=== PATIENT | male | born 1995 | race Caucasian/White ===

== ENCOUNTER 2021-11-08 16:18 | Emergency (ER) | payer OTHER ==
--- NOTE | 2021-11-08 17:53 | EDPHYS ---
Physician Documentation [facility] Name: Gene Merritt Age: 26 yrs Sex: Male : 1995 Arrival Date: 11/08/2021 Time: 16:19 Bed 10 Private MD: ED Physician Christiano Fairchild HPI: 11/08 17:47 This 26 yrs old Male presents to ER via Ambulatory with complaints of Nose Bleed. cp 17:47 The patient presents with a nose bleed, occurred from an unknown cause, that is cp moderate amount causative factors include: took Benadryl 2 days ago and the bleeding resolved prior to arrival. Onset: The symptoms/episode began/occurred just prior to arrival. Modifying factors: The symptoms are alleviated by pressure. Associated signs and symptoms: The patient has no apparent associated signs or symptoms. Severity of symptoms: in the emergency department the symptoms have resolved and did so just prior to arrival. Historical: - Allergies: 16:23 unknown antibiotic; ll1 - PMHx: 16:23 Hypertensive disorder; Sleep apnea; ll1 - PSHx: 16:23 None; ll1 - Immunization history:: Client reports receiving the 2nd dose of the Covid vaccine. - Social history:: Smoking status: Patient denies any tobacco usage or history of. ROS: 17:49 Constitutional: Negative for body aches, chills, fever, poor PO intake. cp 17:49 ENT: Positive for history of nose bleed, Negative for injury or acute deformity, drainage from ear(s), ear pain, sore throat, difficulty swallowing, difficulty handling secretions. 17:49 Respiratory: Negative for cough, shortness of breath, wheezing. 17:49 Abdomen/GI: Negative for abdominal pain, nausea, vomiting, and diarrhea. 17:49 Neuro: Negative for altered mental status, dizziness, headache, weakness. 17:49 All other systems are negative. Exam: 17:50 Head/Face: Normocephalic, atraumatic. cp 17:50 Constitutional: The patient appears in no acute distress, alert, awake, comfortable, non-toxic, well developed, well nourished. 17:50 Eyes: Periorbital structures: appear normal, Conjunctiva: normal, no exudate, no injection, Sclera: no appreciated abnormality, Lids and lashes: appear normal, bilaterally. 17:50 ENT: External ear(s): are unremarkable, Ear canal(s): are normal, clear, TM's: dullness, bilaterally, Nose: External nose: no obvious acute abnormality, Nasal septum: is midline, bleeding, is not appreciated, no septal hematoma is appreciated, Mouth: Lips: moist, Oral mucosa: pink and intact, moist, Posterior pharynx: Airway: no evidence of obstruction, patent. 17:50 Neck: ROM/movement: is normal, is supple, without pain, no range of motions limitations, Lymph nodes: no appreciated lymphadenopathy. 17:50 Chest/axilla: Inspection: normal. 17:50 Cardiovascular: Rate: normal. Vital Signs: 16:20 BP 132 / 84; Pulse 96; Resp 17; Temp 98.6; Pulse Ox 100% ; Weight 117.93 kg; Height 5 ll1 ft. 10 in. (177.80 cm); Pain 0/10; 16:20 Body Mass Index 37.31 (117.93 kg, 177.80 cm) ll1 MDM: 17:52 Patient medically screened. cp 17:52 Differential diagnosis: foreign body - resolved, foreign body - unresolved, trauma, cp sinusitis, epistaxis r/t trauma, spontaneous epistaxis. 17:52 Data reviewed: vital signs, nurses notes, and as a result, I will discharge patient. cp Counseling: I had a detailed discussion with the patient and/or guardian regarding: the historical points, exam findings, and any diagnostic results supporting the discharge/admit diagnosis, to return to the emergency department if symptoms worsen or persist or if there are any questions or concerns that arise at home. Administered Medications: 18:01 Drug: Afrin (oxymetazoline) Drops (0.05 %) 1 sprays Route: Intranasal; Site: both nares;ll1 Disposition: 18:04 Co-signature as Attending Physician, Christiano Fairchild MD I agree with the assessment and kdr plan of care. Disposition Summary: 11/08/21 17:52 Discharge Ordered Location: Home cp Problem: new cp Symptoms: are resolved cp Condition: Stable cp Diagnosis - Epistaxis - resolved cp Followup: cp - With: Bindu Amor MD - When: 1 - 2 days - Reason: Worsening of condition Discharge Instructions: - Discharge Summary Sheet cp - Nosebleed, Adult cp Forms: - Medication Reconciliation Form cp - Thank You Letter cp - Antibiotic Education cp - Prescription Opioid Use cp Signatures: Christiano Fairchild MD MD kdr Nino Goodwin PA PA cp Lewis, Lynsay RN RN ll1
--- NOTE | 2021-11-08 17:53 | ER ---
Nurse's Notes [facility] Name: Gene Merritt Age: 26 yrs Sex: Male : 1995 Arrival Date: 11/08/2021 Time: 16:19 Bed 10 Private MD: Diagnosis: Epistaxis-resolved Presentation: 11/08 16:20 Chief complaint: Patient states: Nose bleed for approx. 20 min at work just [employer]. EMS ll1 found high BP 117//113, otherwise normal vitals. Nose started bleeding after taking Benadryl today. States that has happened to him in the past when taking Benadryl. Coronavirus screen: Vaccine status: Patient reports receiving the 2nd dose of the covid vaccine. Client denies travel out of the [place] in the last 14 days. At this time, the client does not indicate any symptoms associated with coronavirus-19. Ebola Screen: Patient denies travel to an Ebola-affected area in the 21 days before illness onset. Initial Sepsis Screen: Does the patient meet any 2 criteria? HR > 90 bpm. No. Patient's initial sepsis screen is negative. Does the patient have a suspected source of infection? Yes: Other: nose bleed. Risk Assessment: Do you want to hurt yourself or someone else? Patient reports no desire to harm self or others. Onset of symptoms was November 08, 2021. 16:20 Method Of Arrival: Ambulatory ll1 16:20 Acuity: ZA 4 ll1 Triage Assessment: 16:23 General: Appears uncomfortable, Behavior is calm, cooperative, appropriate for age. ll1 Pain: Denies pain. EENT: Reports nasal discharge that is bloody. Historical: - Allergies: 16:23 unknown antibiotic; ll1 - PMHx: 16:23 Hypertensive disorder; Sleep apnea; ll1 - PSHx: 16:23 None; ll1 - Immunization history:: Client reports receiving the 2nd dose of the Covid vaccine. - Social history:: Smoking status: Patient denies any tobacco usage or history of. Screenin:30 Abuse screen: Denies threats or abuse. Denies injuries from another. Nutritional ss screening: No deficits noted. Tuberculosis screening: Never had TB. Fall Risk None identified. Assessment: 17:30 General: Appears in no apparent distress. comfortable, Behavior is calm, cooperative, ss Denies fever, feeling ill, fatigue, chills. Pain: Denies pain. Neuro: Level of Consciousness is awake, alert, obeys commands, Oriented to person, place, time, situation. Cardiovascular: Capillary refill < 3 seconds is brisk in bilateral fingers. Respiratory: Airway is patent Respiratory effort is even, unlabored, Respiratory pattern is regular, symmetrical. GI: No signs and/or symptoms were reported involving the gastrointestinal system. EENT: dry blood noted to bilateral nares. Derm: Skin is intact, is healthy with good turgor, Skin is dry, Skin is pink, warm \T\ dry. normal. Musculoskeletal: Circulation, motion, and sensation intact. Range of motion: intact in all extremities, Swelling absent. Vital Signs: 16:20 BP 132 / 84; Pulse 96; Resp 17; Temp 98.6; Pulse Ox 100% ; Weight 117.93 kg; Height 5 ll1 ft. 10 in. (177.80 cm); Pain 0/10; 16:20 Body Mass Index 37.31 (117.93 kg, 177.80 cm) ll1 ED Course: 16:19 Patient arrived in ED. ds1 16:23 Triage completed. ll1 16:23 Arm band placed on. ll1 16:35 Nino Goodwin PA is PHCP. cp 16:35 Christiano Fairchild MD is Attending Physician. cp 17:30 Patient has correct armband on for positive identification. Bed in low position. Call ss light in reach. 17:52 Bindu Amor MD is Referral Physician. cp 17:53 Sandra Cavazos, ANISHA is Primary Nurse. ss 18:01 No provider procedures requiring assistance completed. Patient did not have IV access ll1 during this emergency room visit. Administered Medications: 18:01 Drug: Afrin (oxymetazoline) Drops (0.05 %) 1 sprays Route: Intranasal; Site: both nares;ll1 Outcome: 17:52 Discharge ordered by . cp 18:01 Discharged to home ambulatory. ll1 18:01 Condition: good 18:01 Discharge instructions given to patient, Instructed on discharge instructions, follow up and referral plans. medication usage, Demonstrated understanding of instructions, follow-up care, medications, Prescriptions given X 1. 18:01 Patient left the ED. ll1 Signatures: Christine Celaya ds1 Sandra Cavazos, RN RN ss Nino Goodwin, GUDELIA PA Kayla Lazaro, RN RN ll1
[2021-11-08] MEDS ORDERED: OXYMETAZOLINE HCL 0.05% 15ML NAS ONE (17:58)
[2021-11-08 18:12] VITALS: BP 132/84; TEMP 98.6; O2SAT 100
== END 2021-11-08 18:01 | disposition home or self-care (01) ==
LOC: ER 16:18
DX: R04.0 Epistaxis (principal); I10 Essential (primary) hypertension
CPT/HCPCS: 99283